=== PATIENT | male | born 1975 | race Caucasian/White ===

== ENCOUNTER 2017-04-02 23:14 | Emergency (ER) | payer OTHER ==
[2017-04-03 01:54] LABS: HEMOGLOBIN 14.3 gm/dl (14.0-17.5); WHITE BLOOD COUNT 10.4 K/UL (4.5-11.0)
[2017-04-03 02:15] LABS: BUN/CREATININE RATIO 28 (0-10)
== END 2017-04-03 03:15 | disposition home or self-care (01) ==
LOC: ER1 23:14
PROVIDERS: Family Medicine
DX: F11.23 Opioid dependence with withdrawal (principal); E87.6 Hypokalemia; Z79.899 Other long term (current) drug therapy
CPT/HCPCS: 36415; 71010; 80053; 82550; 82553; 83874; 84484; 85025; 93005; 96374; 99284; G0480; J2405

== ENCOUNTER 2017-04-03 10:23 | Emergency (ER) | payer OTHER ==
[2017-04-03 11:46] LABS: HEMOGLOBIN 14.1 gm/dl (14.0-17.5); RED BLOOD COUNT 4.97 M/UL (4.20-5.50); WHITE BLOOD COUNT 7.9 K/UL (4.5-11.0)
[2017-04-03 12:11] LABS: BUN/CREATININE RATIO 22 (0-10)
== END 2017-04-03 20:48 | disposition home or self-care (01) ==
LOC: ER1 10:23
PROVIDERS: Physician Assistant
DX: R07.9 Chest pain, unspecified (principal); F19.10 Other psychoactive substance abuse, uncomplicated; F10.10 Alcohol abuse, uncomplicated; Y90.0 Blood alcohol level of less than 20 mg/100 ml; G47.419 Narcolepsy without cataplexy; K75.9 Inflammatory liver disease, unspecified; Z79.899 Other long term (current) drug therapy
CPT/HCPCS: 36415; 71020; 80053; 80307; 81001; 82550; 82553; 82962; 83874; 84484; 85025; 85379; 93005; 96360; 99285; G0480